=== PATIENT | male | born 1955 | race American Indian/Alaskan Native ===

== ENCOUNTER 2020-09-04 09:09 | Emergency (ER) | payer MEDICARE ==
[2020-09-04 09:24] VITALS: BP 140/91
--- NOTE | 2020-09-04 09:50 | Event Note ---
ED Screening Note Date of service: 09/04/20 Time: 09:49 ED Screening Note: 65-year-old male who is a poor historian was brought to the ER today by EMS with complaints of possible seizures versus dementia. Patient reports that he was sitting on the chair watching TV when he slumped over to the left. He states that he got dizzy and woozy and started to not feel well. He states that he does not think he passed out. He states that given his history of seizures he was concerned that he may have had a seizure. He states that he may have a history of dementia but is not sure. He denies any head injury, shortness of breath, chest pain, abdominal pain, focal weakness, numbness or tingling. He states that [facility]. He also complains of his bites that he noticed to his body which has been pruritic in nature This initial assessment/diagnostic orders/clinical plan/treatment(s) is/are subject to change based on patients health status, clinical progression and re- assessment by fellow clinical providers in the ED. Further treatment and workup at subsequent clinical providers discretion. Patient/guardian urged not to elope from the ED as their condition may be serious if not clinically assessed and managed. Initial orders include: CBC, CMP, EKG, head CT, UA, troponin
--- NOTE | 2020-09-04 10:54 | Cat Scan Report ---
CT BRAIN: 09/04/2020 INDICATION / CLINICAL INFORMATION: Dizziness.. COMPARISON: None available. FINDINGS: BRAIN/INTRACRANIAL STRUCTURES: Unenhanced CT images of the brain were obtained. No previous studies a re available here for comparison. There are prominent bilateral areas of cortical ischemic encephalomalacia, located in the right front al and left parietal lobes. Prominent diffuse cerebral atrophy and chronic white matter hypoattenuati on is present. There is no CT evidence of acute ischemic injury, hemorrhage, or mass. There are no abnormal extra-ax ial fluid collections. ' EXTRACRANIAL STRUCTURES: Left maxillary sinus mucosal thickening and a small amount of fluid is prese nt. Paranasal sinuses are otherwise clear. Anterior nasal septal defect is present, most likely due t o prior injury or surgery. Medial displacement of the medial wall of the left orbit is present, suggesting prior orbital injury. There is no evidence of acute orbital injury. IMPRESSION: Chronic bilateral cortical ischemic changes as detailed above. Diffuse cerebral atrophy. All CT scans at this location are performed using dose reduction to ALARA by means of automated expos ure control. Signer Name: Gui Bond MD Signed: 09/04/2020 10:49 AM Workstation Name: [id number]
[2020-09-04 11:05] LABS: Basophils % (Auto) 0.6 % (0.0-1.8); Eosinophils # (Auto) 0.3 K/mm3 (0.0-0.4); Eosinophils % (Auto) 6.6 % (0.0-4.3); Hematocrit 39.1 % (35.5-45.6); Hemoglobin 12.7 gm/dl (11.8-15.2); Lymphocytes # (Auto) 1.7 K/mm3 (1.2-5.4); Lymphocytes % (Auto) 39.5 % (13.4-35.0); Mean Corpuscular HGB Conc 32 % (32-34); Mean Corpuscular Volume 101 fl (84-94); Monocytes # (Auto) 0.4 K/mm3 (0.0-0.8); Monocytes % (Auto) 9.4 % (0.0-7.3); Platelet Count 148 K/mm3 (140-440); Red Blood Count 3.87 M/mm3 (3.65-5.03); Red Cell Distribution Width 15.5 % (13.2-15.2)
[2020-09-04 11:31] LABS: Alanine Aminotransferase 29 units/L (7-56); Albumin 4.3 g/dL (3.9-5); BUN/Creatinine Ratio 24; Blood Urea Nitrogen 36 mg/dL (9-20); Calcium 9.9 mg/dL (8.4-10.2); Hemolysis Index 5
[2020-09-04 11:40] LABS: Bilirubin,Urine NEG (Negative); Blood,Urine NEG (Negative); Color,Urine Yellow (Yellow); Protein,Urine <15 mg/dL mg/dL (Negative); Urobilinogen,Urine < 2.0 mg/dL (<2.0)
--- NOTE | 2020-09-04 11:40 | Emergency Department Report ---
ED Seizure HPI - General Chief Complaint: Seizure Stated Complaint: SEIZURE Time Seen by Provider: 09/04/20 09:37 Source: patient, EMS Mode of arrival: Ambulatory Limitations: Other - History of Present Illness Initial Comments: 65-year-old male, history of seizure disorder, presents to ED stating "I think I might have had a seizure." Patient reports he was sitting in his chair watching TV. States he awoke slumped over in the chair, feeling dizzy, and also felt as if he had bitten his tongue. Patient states he is compliant with his seizure medicine. Patient states he lives with his escalator installer, Bravo, who gives him his medications daily. Patient unable to recall the name of his seizure medication, however he states he takes it 3 times a day. When asked if it is Dilantin, patient states yes, he believes he is on Dilantin. Patient denies any fever, cough, headache, abdominal pain, chest pain, shortness of breath. Patient does report an itchy rash to bilateral arms x2 days. MD Complaint: possible seizure -: This morning Seizure History: known seizure disorder Place: home Associated Symptoms: denies: chest pain, cough, fever/chills, shortness of breath, syncope Treatments Prior to Arrival: none - Related Data Previous Rx's Medication Instructions Recorded Last Taken Type Hydrocortisone 0.5% 1 applicatio TP TID #1 tube 09/04/20 Unknown Rx [Hydrocortisone 0.5% CREAM] Allergies Allergy/AdvReac Type Severity Reaction Status Date / Time No Known Allergies Allergy Unverified 09/04/20 09:12 ED Review of Systems ROS: Stated complaint: SEIZURE Other details as noted in HPI Comment: All other systems reviewed and negative Constitutional: denies: fever Respiratory: denies: cough, shortness of breath Cardiovascular: denies: chest pain Gastrointestinal: denies: abdominal pain, nausea, vomiting, diarrhea Skin: rash ED Past Medical Hx - Past Medical History Previous Medical History?: Yes Hx Pulmonary Embolism: Yes Hx Seizures: Yes Hx Dementia: Yes - Surgical History Past Surgical History?: No - Social History Smoking Status: Former Smoker Substance Use Type: Alcohol - Medications Home Medications: Home Medications Medication Instructions Recorded Confirmed Last Taken Type Hydrocortisone 0.5% 1 applicatio TP TID #1 tube 09/04/20 Unknown Rx [Hydrocortisone 0.5% CREAM] ED Physical Exam - General Limitations: Other General appearance: alert, in no apparent distress - Head Head exam: Present: atraumatic, normocephalic - Eye Eye exam: Present: normal appearance, EOMI - ENT ENT exam: Present: mucous membranes moist - Neck Neck exam: Present: normal inspection, full ROM. Absent: meningismus - Respiratory Respiratory exam: Present: normal lung sounds bilaterally. Absent: respiratory distress - Cardiovascular Cardiovascular Exam: Present: regular rate, normal rhythm - GI/Abdominal GI/Abdominal exam: Present: soft. Absent: distended, tenderness - Extremities Exam Extremities exam: Present: normal inspection - Neurological Exam Neurological exam: Present: alert, oriented X3 - Psychiatric Psychiatric exam: Present: normal affect, normal mood - Skin Skin exam: Present: warm, dry, intact (erythematous papular rash w/ some excoriations to bilateral upper extremities), rash ED Course Vital Signs 09/04/20 09:21 Temperature 97.7 F Pulse Rate 65 Respiratory 20 Rate Blood Pressure 140/91 O2 Sat by Pulse 92 Oximetry ED Medical Decision Making - Lab Data Result diagrams: 09/04/20 10:41 09/04/20 10:41 - Radiology Data Radiology results: report reviewed, image reviewed - Medical Decision Making 65-year-old male presents to ED for possible seizure. Patient has history of seizure disorder. States he is compliant with his medications, although, he does not know exactly which medication he is taking. Attempted to reach phone number that is listed, , however there was no answer. Patient states his escalator installer, Bravo, gives him his medications daily. Patient believes he may take Dilantin, however he is not 100% certain. Therefore, we will refrain from ordering a Dilantin level as patient may not actually be taking this medication. Unable to confirm his seizure medications at this time. Patient is currently A&O x3, no neuro deficits. CT head shows no acute findings. Patient has been observed and has had no seizure activity here in the ED. Will discharge at this time. Outpatient follow-up advised. Return precautions given. Critical care attestation.: If time is entered above; I have spent that time in minutes in the direct care of this critically ill patient, excluding procedure time. ED Disposition Clinical Impression: Seizure, Dermatitis Disposition: DC-01 TO HOME OR SELFCARE Is pt being admited?: No Condition: Stable Instructions: Rash, Adult, Seizure, Adult, [id number] Prescriptions: Hydrocortisone 0.5% [Hydrocortisone 0.5% CREAM] 1 applicatio TP TID #1 tube Referrals: PRIMARY CARE, [Primary Care Provider] - 3-5 Days DEBBEI PIKE MD [Referring] - 3-5 Days [facility] [Provider Group] - 3-5 Days Time of Disposition: 11:52
== END 2020-09-04 23:15 | disposition home or self-care (01) ==
LOC: ED 09:09
DX: R56.9 Unspecified convulsions (principal); L30.9 Dermatitis, unspecified; F03.90 Unspecified dementia, unspecified severity, without behavioral disturbance, psychotic disturbance, mood disturbance, and anxiety; Z86.711 Personal history of pulmonary embolism; Z87.891 Personal history of nicotine dependence; Z79.899 Other long term (current) drug therapy
CPT/HCPCS: 36415; 70450; 80053; 81001; 84484; 85025; 93005